=== PATIENT | female | born 1980 | race Asian ===

== ENCOUNTER 2022-02-07 19:20 | Emergency (ER) | payer OTHER, BC ==
[~2022-02-07] VITALS: Ht 162.6 cm; Wt 53.5 kg
[2022-02-07 19:23] VITALS: BP_SYST 100
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
--- NOTE | 2022-02-07 20:56 | NUR ---
Patient to ER bed 7 to gown for evaluation. Side rails up. Report given to AALIYAH LOPEZ(REG).
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
[2022-02-07] MEDS ORDERED: IBUP-1969 PO (21:17)
[2022-02-07] MEDS ORDERED: METH-634 PO (21:17)
--- NOTE | 2022-02-07 21:34 | NUR ---
Patient given written and verbal discharge instructions and verbalizes understanding. ER MD discussed with patient the results and treatment provided. Patient in stable condition. ID arm band removed. IV catheter removed intact and dressing applied, no active bleeding. Rx of ROBAXIN, MOTRIN given. Patient educated on pain management and to follow up with PMD. Pain Scale . Opportunity for questions provided and answered. Medication side effect fact sheet provided.
== END 2022-02-07 21:32 | disposition home or self-care (01) ==
LOC: SED 19:20
DX: S16.1XXA Strain of muscle, fascia and tendon at neck level, initial encounter (principal); Z79.899 Other long term (current) drug therapy; V43.52XA Car driver injured in collision with other type car in traffic accident, initial encounter; Y93.89 Activity, other specified; Y92.89 Other specified places as the place of occurrence of the external cause; Y99.8 Other external cause status
CPT/HCPCS: 72040-TC; 99283